=== PATIENT | female | born 1975 | race Hispanic/Latino ===

== ENCOUNTER → 2019-01-27 | Outpatient (CLI) | payer OTHER | END | disposition home or self-care (01) | LOC: LAB 09:45 | PROVIDERS: ATTEND Internal Medicine | DX: Z01.818 Encounter for other preprocedural examination (principal); I10 Essential (primary) hypertension | CPT/HCPCS: 93005 ==

== ENCOUNTER → 2022-01-30 | Outpatient (CLI) | payer OTHER ==
[~2022-01-30] MED LIST: IOHEXOL 350 MG/ML 100ML INFUS..BTL IV ONE
== END | disposition home or self-care (01) ==
LOC: RAH 15:08
PROVIDERS: ATTEND Internal Medicine
DX: R91.8 Other nonspecific abnormal finding of lung field (principal); I51.7 Cardiomegaly; M47.815 Spondylosis without myelopathy or radiculopathy, thoracolumbar region; R79.89 Other specified abnormal findings of blood chemistry
CPT/HCPCS: 71275; Q9967